=== PATIENT | female | born 1995 | race Caucasian/White ===

== ENCOUNTER 2019-09-28 10:18 | Emergency (ER) | payer OTHER ==
[~2019-09-28] VITALS: Ht 157.5 cm; Wt 46.8 kg
[2019-09-28 10:29] VITALS: BP 136/83
[2019-09-28 11:53] LABS: BASO # 0.1 x10^3/uL (0.0-0.2); BASO % 1 % (0-3); EOS # 0.1 x10^3/uL (0.0-0.7); EOS % 1 % (0-3); HEMATOCRIT 44.6 % (36.0-47.0); HEMOGLOBIN 14.9 g/dL (12.0-15.5); LYMPH # 1.1 x10^3/uL (1.0-4.8); LYMPH % 16 % (24-48); MEAN CORPUSCULAR HEMOGLOBIN 29 pg (25-35); MEAN CORPUSCULAR HGB CONC 33 g/dL (31-37); MEAN CORPUSCULAR VOLUME 85 fL (79-100); MONO # 0.4 x10^3/uL (0.0-1.1); MONO % 6 % (0-9); NEUT # 5.2 x10^3uL (1.8-7.7); NEUT % 76 % (31-73); PLATELET COUNT 172 x10^3/uL (140-400); RED BLOOD COUNT 5.23 x10^6/uL (3.50-5.40); RED CELL DISTRIBUTION WIDTH 12.6 % (11.5-14.5); WHITE BLOOD COUNT 6.9 x10^3/uL (4.0-11.0)
[2019-09-28 12:02] LABS: CALCIUM 9.5 mg/dL (8.5-10.1); CREATININE 0.7 mg/dL (0.6-1.0); GFR 102.8; MAGNESIUM 2.1 mg/dL (1.8-2.4); POTASSIUM 3.6 mmol/L (3.5-5.1)
--- NOTE | 2019-09-28 12:10 | RAD ---
Exam performed: OB sonogram less than 14 weeks HISTORY: Bleeding in early . DATE OF SERVICE: 09/28/2019. COMPARISON: None available TECHNIQUE: Transabdominal. FINDINGS: The uterus is somewhat enlarged and measures 7.6 x 4.0 x 3.1 cm. There is a gestational sac in the lower uterine segment containing a pole. The CRL measures 4.3 mm corresponding to 6 weeks and 1 day. No heart tones are identified. There is no yolk sac. The cervical length measures 3.0 cm Maturity by LMP is 7 weeks and 1 day day with LARS of 05/15/2020 based on the estimated LMP of 08/09/2019. Both ovaries are normal. The right ovary measures 2.2 x 2.7 x 1.6 cm the left ovary measures 2.4 x 2.0 x 1.7 cm. No free fluid. IMPRESSION: Single intrauterine gestational sac in the lower uterine segment containing a pole of maturity 6 weeks and 1 days without heart tones. Given the location of gestational sac and lack of heart tones, demise is suspected. Evaluation with quantitative beta-hCG level may be obtained. Electronically signed by: Amanda Garcia MD (09/28/2019 12:07 PM) [id number]
[2019-09-28 12:29] LABS: BACTERIA,URINE 0 /HPF (0-FEW); BILIRUBIN,URINE NEG (NEG); CLARITY,URINE CLEAR; COLOR,URINE COLORLESS; GLUCOSE,URINE NEG (NEG); NITRITE,URINE NEG (NEG); SQUAMOUS EPITHELIAL CELL,UR FEW /LPF; UROBILINOGEN,URINE 0.2 mg/dL (0.2 mg/dL); WBC,URINE OCC /HPF (0-4)
--- NOTE | 2019-09-28 13:34 | PHYS DOC ---
Past History Past Medical History: No Pertinent History Past Surgical History: No Surgical History Smoking: Non-smoker Alcohol Use: None Adult General Chief Complaint Chief Complaint: VAGINAL BLEEDING HPI HPI 23-year-old female presents at approximate 7 weeks with report of vaginal bleeding with associated pelvic cramping which started last night. Patient reports she had had some brown discharge over the last week. Reports had seen her PCP recently who confirms based on urine. Denies trauma. Denies vaginal discharge. Denies nausea or vomiting. Denies dysuria. Denies fever or chills. 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, external genitalia normal, blood with clots noted in vaginal vault, tissue noted in cervical os, no adnexal tenderness Skin: Warm, dry, no erythema, no rash Back: No tenderness, no CVA tenderness Extremities: No tenderness, ROM intact, no edema Neurologic: Alert and oriented X 3, no focal deficits noted Psychologic: Affect normal, judgment normal Current Patient Data Vital Signs Vital Signs Date Time Temp Pulse Resp B/P (MAP) Pulse Ox O2 Delivery O2 Flow Rate FiO2 09/28/19 10:29 87 18 136/83 (100) 100 Lab Results Laboratory Tests Test 09/28/19 10:45 White Blood Count 6.9 x10^3/uL (4.0-11.0) Red Blood Count 5.23 x10^6/uL (3.50-5.40) Hemoglobin 14.9 g/dL (12.0-15.5) Hematocrit 44.6 % (36.0-47.0) Mean Corpuscular Volume 85 fL (79-100) Mean Corpuscular Hemoglobin 29 pg (25-35) Mean Corpuscular Hemoglobin Concent 33 g/dL (31-37) Red Cell Distribution Width 12.6 % (11.5-14.5) Platelet Count 172 x10^3/uL (140-400) Neutrophils (%) (Auto) 76 % (31-73) H Lymphocytes (%) (Auto) 16 % (24-48) L Monocytes (%) (Auto) 6 % (0-9) Eosinophils (%) (Auto) 1 % (0-3) Basophils (%) (Auto) 1 % (0-3) Neutrophils # (Auto) 5.2 x10^3uL (1.8-7.7) Lymphocytes # (Auto) 1.1 x10^3/uL (1.0-4.8) Monocytes # (Auto) 0.4 x10^3/uL (0.0-1.1) Eosinophils # (Auto) 0.1 x10^3/uL (0.0-0.7) Basophils # (Auto) 0.1 x10^3/uL (0.0-0.2) Urine Collection Type Unknown Urine Color Colorless Urine Clarity Clear Urine pH 6.5 Urine Specific [place] <=1.005 Urine Protein Neg (NEG-TRACE) Urine Glucose (UA) Neg mg/dL (NEG) Urine Ketones (Stick) Neg mg/dL (NEG) Urine Blood Large (NEG) Urine Nitrite Neg (NEG) Urine Bilirubin Neg (NEG) Urine Urobilinogen Dipstick 0.2 mg/dL (0.2 mg/dL) Urine Leukocyte Esterase Neg (NEG) Urine RBC 1-2 /HPF (0-2) Urine WBC Occ /HPF (0-4) Urine Squamous Epithelial Cells Few /LPF Urine Bacteria 0 /HPF (0-FEW) Maternal Serum HCG Beta Subunit 1349 mIU/mL (0-6) H Sodium Level 141 mmol/L (136-145) Potassium Level 3.6 mmol/L (3.5-5.1) Chloride Level 104 mmol/L (98-107) Carbon Dioxide Level 26 mmol/L (21-32) Anion Gap 11 (6-14) Blood Urea Nitrogen 8 mg/dL (7-20) Creatinine 0.7 mg/dL (0.6-1.0) Estimated GFR (Cockcroft-Gault) 102.8 Glucose Level 100 mg/dL (70-99) H Calcium Level 9.5 mg/dL (8.5-10.1) Magnesium Level 2.1 mg/dL (1.8-2.4) EKG EKG [] Radiology/Procedures Radiology/Procedures PROCEDURE: OB <14 WKS W/TV Exam performed: OB sonogram less than 14 weeks HISTORY: Bleeding in early . DATE OF SERVICE: 09/28/2019. COMPARISON: None available TECHNIQUE: Transabdominal. FINDINGS: The uterus is somewhat enlarged and measures 7.6 x 4.0 x 3.1 cm. There is a gestational sac in the lower uterine segment containing a pole. The CRL measures 4.3 mm corresponding to 6 weeks and 1 day. No heart tones are identified. There is no yolk sac. The cervical length measures 3.0 cm Maturity by LMP is 7 weeks and 1 day day with LARS of 05/15/2020 based on the estimated LMP of 08/09/2019. Both ovaries are normal. The right ovary measures 2.2 x 2.7 x 1.6 cm the left ovary measures 2.4 x 2.0 x 1.7 cm. No free fluid. IMPRESSION: Single intrauterine gestational sac in the lower uterine segment containing a pole of maturity 6 weeks and 1 days without heart tones. Given the location of gestational sac and lack of heart tones, demise is suspected. Evaluation with quantitative beta-hCG level may be obtained. Electronically signed by: Amanda Garcia MD (09/28/2019 12:07 PM) [id number] Course & Med Decision Making Course & Med Decision Making Pertinent Labs and Imaging studies reviewed. (See chart for details) Patient presents with history of present illness and physical exam concerning for possible miscarriage. Patient . Labs obtained and posted to chart. H&H stable. The hCG low for reported dates. ABO: O-. Ultrasound performed with concern for demise. Pelvic exam performed with signs of tissue at cervical os. A sample of tissue sent to pathology for examination of proximal of conception. Chlamydia/gonorrhea cultures obtained. Patient declines empiric antibiotic therapy. Wet mount negative. RhoGAM provided. 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 Patient advised would need repeat beta hCG in the next 48-72 hours. Discussed findings and plan with patient and family, who acknowledge understanding and agreement. Dragon Disclaimer Dragon Disclaimer This electronic medical record was generated, in whole or in part, using a voice recognition dictation system. Departure Departure: Impression: Primary Impression: Miscarriage Disposition: HOME, SELF-CARE Condition: STABLE Referrals: JARVIS RIVERO MD (PCP) Patient Instructions: Miscarriage, [id number], RhoGAM Additional Instructions: Please have your doctor or another hospital draw a repeat BHCG level in 48- 72hours to ensure the level is decreasing. Maintain pelvic rest for 1 week after bleeding resolves. Use over the counter Tylenol and/or Ibuprofen for pain or discomfort. ROSALIE CARRANZA DO Sep 28, 2019 13:34
--- NOTE | 2019-10-01 17:06 | PATHOLOGY ---
[facility] Accession Number: [id number] . 01 Material submitted: . product of conception - TISSUE FROM CERVICAL OS . 01 Clinical history: . LMP 08/09/19 . 02 Diagnosis: Tissue from cervical os: - Decidual tissue showing focal hemorrhage and acute inflammation. . (JPM:mm; 10/01/2019) [facility] 10/01/2019 1325 Local . 02 Comment: No chorionic villi or tissue is identified. . (M:mm; 10/01/2019) . 02 Electronically signed: . Tj Hassan MD, Pathologist NPI- [id number] . 01 Gross description: . The specimen is received in formalin, labeled "Mary Brian, cervix". The specimen is additionally labeled on the requisition as, " tissue from cervical os". Received are multiple segments of light brock to dusky ding-brock soft tissue measuring 3.7 x 3.3 x 0.5 cm in aggregate dimensions. or embryonic tissue is not grossly identified. Vesicular structures are absent. The specimen is submitted entirely in cassettes A1 through A3. (CAA; 09/30/2019) QAC/QAC 09/30/2019 1716 Local . 02 Pathologist provided ICD-10: N72 . 02 CPT . 316074 Specimen Comment: A courtesy copy of this report has been sent to [phone], [phone] Specimen Comment: [id number] Specimen Comment: Report sent to / DR CARRANZA Performed at: 01 [facility] [address], [place], [place] [id number] MD Corey Allen MD Phone: [phone] Performed at: 02 [facility] [address], [place] [id number] MD Tj Hassan MD Phone: [phone]
== END 2019-09-28 15:02 | disposition home or self-care (01) ==
LOC: ER 10:18 → EDBD 10:18 → ER 15:02
DX: O03.9 Complete or unspecified spontaneous abortion without complication (principal)
CPT/HCPCS: 36430; 76801; 76817; 80048; 81001; 83735; 84702; 85025; 86850; 86900; 86901; 87491; 87591; 99285; J2791; Q0111